=== PATIENT | female | born 1960 | race Caucasian/White ===

== ENCOUNTER 2022-03-22 07:46 | Day surgery (SDC) | payer BC ==
[~2022-03-22 07:46] MED LIST: Lactated Ringers 1,000 ML IV SCH; Lidocaine 1%/Sod Bicarbonate in NS 8.4% 1 ML Syringe IDERM PRN; Sodium Chloride 0.9% 10 ML Syringe FLUSH PRN; Sodium Chloride 0.9% 10 ML Syringe FLUSH SCH
[2022-03-22] MEDS ORDERED: Lidocaine 1% 4 ML ONE (09:39)
[2022-03-22] MEDS ORDERED: Propofol 200 MG/20 ML SDV ONE ×3 (09:39→10:16)
[2022-03-22 11:28] VITALS: BP 118/74; PULSE 90
== END 2022-03-22 11:23 | disposition home or self-care (01) ==
LOC: JD.SDS 07:46
PROVIDERS: ATTEND Surgery
DX: K63.5 Polyp of colon (principal); K64.4 Residual hemorrhoidal skin tags; J44.9 Chronic obstructive pulmonary disease, unspecified; E78.5 Hyperlipidemia, unspecified; E03.9 Hypothyroidism, unspecified; F17.210 Nicotine dependence, cigarettes, uncomplicated; M81.0 Age-related osteoporosis without current pathological fracture; Z79.82 Long term (current) use of aspirin; Z79.899 Other long term (current) drug therapy; Z91.048 Other nonmedicinal substance allergy status; Z79.890 Hormone replacement therapy; Z90.49 Acquired absence of other specified parts of digestive tract; Z98.890 Other specified postprocedural states
CPT/HCPCS: 45380; J2704; J7120; 00812

== ENCOUNTER 2022-06-02 22:13 | Emergency (ER) | payer BC ==
[2022-06-02 22:38] VITALS: BP 121/80; PULSE 86
[2022-06-02] MEDS ORDERED: Cyclobenzaprine 10 MG Tab PO ONE (23:00)
[2022-06-02 23:43] LABS: CORONAVIRUS COVID-19 NAA POSITIVE (NEGATIVE)
[2022-06-03 00:08] LABS: ESTIMATED GFR 99 mL/min (>60)
== END 2022-06-03 01:23 | disposition home or self-care (01) ==
LOC: JD.ED 22:13
DX: U07.1 COVID-19 (principal); I10 Essential (primary) hypertension; E03.9 Hypothyroidism, unspecified; F17.210 Nicotine dependence, cigarettes, uncomplicated; Z91.048 Other nonmedicinal substance allergy status; Z79.82 Long term (current) use of aspirin; Z79.899 Other long term (current) drug therapy
CPT/HCPCS: 0241U; 36415; 36600; 71046; 80053; 82803; 83605; 83880; 84484; 85007; 85027; 85379; 86140; 87040; 99283; A9270

== ENCOUNTER 2024-01-15 13:34 | Day surgery (SDC) | payer BC ==
[~2024-01-15 13:34] MED LIST changes: +Dexamethasone 4 MG/ML 5 ML MDV ONE; +HYDROmorphone 0.5 MG/0.5 ML Syringe ONE; +Ketamine 200 MG/20 ML MDV ONE; +Ketorolac 30 MG/ML SDV ONE; -Lactated Ringers 1,000 ML IV SCH; +Lidocaine 1% 5 ML VIAL ONE; -Lidocaine 1%/Sod Bicarbonate in NS 8.4% 1 ML Syringe IDERM PRN; +Ondansetron 4 MG/2 ML SDV ONE; +Propofol 200 MG/20 ML SDV ONE; +Rocuronium 50 MG/5 ML Vial ONE; -Sodium Chloride 0.9% 10 ML Syringe FLUSH SCH; +Sugammadex Sodium 200 MG/2 ML VIAL IV ONE; +ceFAZolin 2 GM Vial ONE; +fentaNYL 100 MCG/2 ML SDV ONE
[2024-01-15] MEDS: Lactated Ringers 1,000 ML IV SCH (14:15)
[2024-01-15] MEDS ORDERED: Ondansetron 4 MG/2 ML SDV IVPUSH PRN (14:44)
[2024-01-15] MEDS ORDERED: fentaNYL 100 MCG/2 ML SDV IVPUSH PRN (14:44)
[2024-01-15] MEDS: Bupivacaine 0.5% 30 ML SDV ONE (14:50)
[2024-01-15] MEDS: Lidocaine 1% 30 ML SDV ONE (14:50)
[2024-01-15] MEDS: EPINEPHrine 1 MG/ML SDV ONE (14:50)
[2024-01-15] MEDS: Gabapentin 300 MG Cap PO ONE ×2 (14:51→18:33)
[2024-01-15] MEDS: Acetaminophen 325 MG Tab PO ONE ×2 (14:52→18:33)
[2024-01-15] MEDS: Pantoprazole 40 MG Tab.CR PO ONE ×2 (14:53→18:33)
[2024-01-15] MEDS ORDERED: Phenylephrine 1% 10 MG/ML SDV ONE (15:15)
[2024-01-15] MEDS ORDERED: Lactated Ringers 1,000 ML IV ONE (15:15)
[2024-01-15] MEDS: HYDROmorphone 0.5 MG/0.5 ML Syringe IVPUSH PRN (16:40)
[2024-01-15 16:53] VITALS: PULSE 84
[2024-01-15] MEDS: Acetaminophen/oxyCODONE 325-5 MG Tab PO PRN (17:55)
[2024-01-15] MEDS: Sodium Chloride 0.9% 10 ML Syringe FLUSH SCH (18:33)
[2024-01-15 19:45] VITALS: BP 121/68
== END 2024-01-15 20:10 | disposition home or self-care (01) ==
LOC: JD.SDS 13:34
PROVIDERS: ATTEND Surgery
DX: K80.10 Calculus of gallbladder with chronic cholecystitis without obstruction (principal); K20.90 Esophagitis, unspecified without bleeding; K22.70 Barrett's esophagus without dysplasia; E03.9 Hypothyroidism, unspecified; E78.5 Hyperlipidemia, unspecified; F17.210 Nicotine dependence, cigarettes, uncomplicated; Z79.890 Hormone replacement therapy; Z79.899 Other long term (current) drug therapy; Z91.048 Other nonmedicinal substance allergy status
CPT/HCPCS: 43239; 47562; A9270; J0171; J0665; J0690; J1100; J1170; J1885; J2371; J2405; J2704; J3010; J3490; J7120; 00790